=== PATIENT | male | born 1965 | race Caucasian/White ===

== ENCOUNTER 2022-03-01 20:40 | Outpatient (CLI) | payer OTHER ==
--- NOTE | 2022-03-02 15:35 | Ultrasound Report ---
PROCEDURE: Chest INDICATIONS: MASS OF BACK TECHNIQUE: Real-time scanning was performed, and a suitable site was marked by the cutting machine fixer for thoracentesis to be performed by the referring clinician. COMPARISON: None. FINDINGS: Mass the area of concern in the left upper back near the base of the neck is very well circumscribed and measures 6.5 x 3.6 x 5.9 cm and is heterogeneously hypoechoic relative to the skin and adjacent s ubcutaneous fat. There is no clear connection to the skin. IMPRESSION: Nonspecific well-circumscribed subcutaneous mass. This could represent a lipoma although the [place] and complexity of the lesion is significantly different from that of the adjacent subcutaneous f at. Dermoid or sebaceous cyst are additional differential considerations. Tissue diagnosis enzo levin Reviewed by: Loi Holland MD on 03/02/2022 3:33 PM PST Approved by: Loi Holland MD on 03/02/2022 3:33 PM PST Station ID: [id number]
== END 2022-03-01 20:41 | disposition home or self-care (01) ==
LOC: DI 20:40
PROVIDERS: ATTEND Internal Medicine
DX: R22.2 Localized swelling, mass and lump, trunk (principal)

== ENCOUNTER 2022-06-04 11:22 | Day surgery (SDC) | payer OTHER ==
[2022-06-04] MEDS ORDERED: CEFAZOLIN 2G/50ML 0.9% NS 2 GM/50 ML BAG IV ONE (11:29)
[2022-06-04] MEDS ORDERED: LACTATED RINGERS 1,000 ML IV ONE (12:00)
--- NOTE | 2022-06-04 13:24 | ANESTHESIA ---
Pre-Anesthesia VS, & Labs - Diagnosis left posterior neck mass - Procedure excision of left posterior neck mass Vital Signs: Temp Pulse Resp BP Pulse Ox O2 Flow Rate 36.6 C 72 18 129/87 H 99 06/04/22 11:55 06/04/22 11:55 06/04/22 11:55 06/04/22 11:55 06/04/22 11:55 Height: 5 ft 11 in Weight (kg): 122.5 kg Body Mass Index: 37.6 BMI Classification: Obese - NPO >8 hours Home Medications and Allergies Home Medications: Ambulatory Orders No Known Home Medications 05/27/22 No Known Home Medications 05/27/22 Allergies/Adverse Reactions: Allergies Allergy/AdvReac Type Severity Reaction Status Date / Time No Known Drug Allergies Allergy Verified 05/27/22 15:53 Anes History & Medical History - Anesthetic History Family history of Anesthesia Complications: Denies Family history of Malignant Hyperthermia: Denies - Medical History Cardiovascular: reports: None Pulmonary: reports: Sleep apnea, CPAP use Gastrointestinal: reports: None Urinary: reports: None Neuro: reports: None Musculoskeletal: reports: None Endocrine/Autoimmune: reports: None Skin: reports: None Smoking Status: Never smoker Psychosocial: reports: No issues indicated History of Cancer?: No Exam General: Alert, Oriented x3, Cooperative, No acute distress Dental: WNL Mouth Openin Fingerbreadth Neck Mobility: Normal Mallampati classification: III Thyromental Distance: 4-6 cm Plan Anesthesia Type: General, MAC Consent for Procedure(s) Verified and Reviewed: Yes Code Status: Attempt Resuscitation ASA classification: 2-Mild systemic disease Is this case an emergency?: No
[2022-06-04] MEDS ORDERED: BUPIVACAINE 0.5%-EPI 1:200000 PF 30 ML VIAL ONE (13:44)
[2022-06-04] MEDS ORDERED: BUPIVACAINE 0.25% PF 30 ML VIAL ONE (13:44)
[2022-06-04] MEDS ORDERED: MIDAZOLAM 2 MG/2 ML VIAL ONE (14:35)
[2022-06-04] MEDS ORDERED: PROPOFOL 200 MG/20 ML VIAL IVP ONE (14:36)
[2022-06-04] MEDS ORDERED: fentaNYL 100 MCG/2 ML VIAL ONE (14:36)
[2022-06-04] MEDS ORDERED: BUPIVACAINE 0.5%-EPI 1:200000 PF 30 ML VIAL SUBQ ONE (15:23)
[2022-06-04] MEDS ORDERED: LACTATED RINGERS 400 ML IV ONE (15:43)
--- NOTE | 2022-06-04 15:45 | OPERATIVE REPORT ---
Operative Report - General Procedure Date: 06/04/22 Planned Procedure: Excision LEFT posterior neck mass Pre-Op Diagnosis: LEFT posterior neck mass Procedure Performed: Excision very large sebaceous cyst LEFT posterior neck Post Op Diagnosis: Very large LEFT posterior neck mass sebaceous cyst - Procedure Note Primary Surgeon: Ifeanyi Keyes MD Anesthesia Provider: Osei Falk CRNA Anesthesia Technique: Local (30 mL of half percent Marcaine with epinephrine), MAC IV Fluids (mL): 600 Estimated Blood Loss (mL): 10 Drain/Tube Type: Other (None.) Indications: Increasingly symptomatic LEFT posterior neck mass. Findings: Very large greater than 9 cm (diameter) left posterior neck sebaceous cyst Complications: None. - Other Other Information/Narrative: After verbal and written informed consent was obtained detailing the operation, the alternatives the operation including no operation, risks of infection, bleeding requiring transfusion with its risks, nerve injury, and and after I met with the patient confirming the surgery and the site of surgery, the patient was brought to the operative suite and placed 0n his left side on the operating table. Great care was taken to avoid pressure points to prevent pressure necrosis or nerve injury. Monitoring devices were applied along with TEDs and pneumatic compression stockings (to prevent DVT). The patient received preoperative antibiotics for surgical prophylaxis. Osei Falk CRNA sedated and anesthetized the patient for the entire procedure. The patient was prepped and draped in the usual sterile manner. A "time in" then confirmed that the patient was identified with 3 identifiers (name, date, and medical record number), the history and physical was updated and in the chart, the signed consent confirming the procedure was in the chart, the patient was in the correct position, the aforementioned prophylactic measures were in place or given, we had the correct personnel and equipment to complete the procedure and that anesthesia and the surgical team were given an opportunity to express any concerns. With the agreement of everyone in the room we proceeded with the operation. A 4.5 cm incision was made over the mass and dissection was carried out down to the using sharp dissection with a scalpel. It was mildly surprising to find a very large sebaceous cyst measuring greater than 9 cm in diameter. The sebaceous cyst was emptied of all of its foul-smelling contents. With the cyst empty the wall was grasped with either Allis clamps or cokers and removed in its entirety. This was to prevent recurrence. Hemostasis was noted. The local was injected at the fascial and skin level. The subcutaneous tissues were approximated using a 3-0 Vicryl in an interrupted simple fashion. The skin incision was approximated with 4-0 Monocryl in a subcuticular fashion. The remaining local was then injected into the space vacated by what was the sebaceous cyst. Again, a total of 30 mL of half percent Marcaine with epinephrine was used. The skin was cleaned of its prep and Dermabond was applied. At this point a timeout was performed that confirmed that all counts were correct x2, the procedure that was performed, the blood loss, the IV fluids administered, the patient's condition, and any concerns of the operating team had. Having tolerated the procedure well, the patient was taken recovery room in good and stable condition. The plan is for outpatient discharge when the patient is adequately recovered. CPT 32591 This document was created in part using voice recognition technology. Because of the inherent limitations of the system, occasional same sounding word substitutions and grammatical errors do occur and persist despite proofreading. Please read this document for content.
[2022-06-04 16:05] VITALS: BP 120/85
--- NOTE | 2022-06-04 16:19 | ANESTHESIA POST OP EVALUATION ---
Anesthesia Post Eval - Post Anesthesia Eval Vitals: Last Vital Signs Temp 36.5 C 06/04/22 15:43 Pulse 76 06/04/22 16:02 Resp 14 06/04/22 16:02 BP 120/85 H 06/04/22 16:02 Pulse Ox 96 06/04/22 16:02 O2 Flow Rate CV Function Including HR & BP: Stable Pain Control: Satisfactory Nausea & Vomiting: Negative Mental Status: Baseline Respiratory Status: Airway Patent Hydration Status: Satisfactory Anesthesia Complications: None
== END 2022-06-04 11:23 | disposition home or self-care (01) ==
LOC: SDS 11:22
PROVIDERS: ATTEND Surgery
DX: L72.3 Sebaceous cyst (principal); E66.9 Obesity, unspecified; Z68.37 Body mass index [BMI] 37.0-37.9, adult; G47.30 Sleep apnea, unspecified
CPT/HCPCS: 11426; 12042; J0690; J7120